=== PATIENT | male | born 1950 | race Two or more races ===

== ENCOUNTER 2023-11-16 14:07 | Emergency (ER) | payer OTHER ==
[~2023-11-16] VITALS: Ht 152.4 cm; Wt 63.5 kg
[2023-11-16 17:01] LABS: HEMATOCRIT 38.7 % (39.0-48.0); HEMOGLOBIN 13.2 g/dL (13-16.00); MEAN CORPUSCULAR HEMOGLOBIN 33.1 pg (27.00-32.0); MEAN CORPUSCULAR HGB CONC 34.1 g/dl (32.0-36.0); PLATELET COUNT 330 K/uL (150-450); RED BLOOD COUNT 3.99 M/uL (4.00-6.00); RED CELL DISTRIBUTION WIDTH 14.7 % (11.5-14.5)
[2023-11-16 17:33] LABS: PH,URINE 5.5 (5.0-8.0); URINE APPEARANCE Clear; URINE BILIRRUBIN Negative (NEGATIVE); URINE BLOOD Negative; URINE COLOR Yellow; URINE GLUCOSE Negative (NEGATIVE); URINE KETONE Negative (NEGATIVE); URINE LEUKOCYTE Negative; URINE NITRATE Negative; URINE PROTEIN 30 (NEGATIVE); URINE UROBILINOGEN 0.2 E.U./dl
[2023-11-16 17:37] LABS: URINE BACTERIA 6.2 uL (0.0-1933); URINE EPITHELIAL CELLS 2.1 uL (0.0-38.8); URINE WBC 4.7 uL (0.0-23.2)
[2023-11-16 17:52] LABS: URINE CAST 0.15 uL (0.0-1.40)
[2023-11-16 17:55] LABS: URINE CRYSTALS MANY /HPF
== END 2023-11-16 18:23 | disposition home or self-care (01) ==
LOC: ER 14:09
DX: R53.81 Other malaise (principal); R10.9 Unspecified abdominal pain